=== PATIENT | male | born 1960 | race Caucasian/White ===

== ENCOUNTER 2016-08-18 15:20 | Emergency (ER) | payer MEDICARE ==
[2016-08-18] MEDS ORDERED: KETOROLAC 60 MG/2 ML VIAL IM ONE (22:54)
== END 2016-08-18 23:34 | disposition home or self-care (01) ==
LOC: ER 15:20
CPT/HCPCS: 36415; 70450; 80053; 81001; 82553; 84484; 85025; 87077; 87088; 87186; 93005; 96372